=== PATIENT | male | born 1995 ===

== ENCOUNTER 2022-09-12 20:36 | Emergency (ER) | payer SELFPAY ==
[2022-09-12 20:56] VITALS: PULSE 79; RESP 16; O2SAT 99; BMI 24.3
[2022-09-12 21:50] VITALS: BP 143/64; PULSE 80; RESP 16; O2SAT 100
--- NOTE | 2022-09-12 21:58 | PC.NURSE ---
Pt declines tetanus shot at this time.
[2022-09-12] MEDS: LIDOCAINE 2% W/EPI INJ 20 ML INJ (22:01)
--- NOTE | 2022-09-13 01:14 | ED_ITS ---
HPI - Extremity Injury (Upper) General Chief Complaint: Extremity Injury, Upper Stated Complaint: L wrist lac Time Seen by Provider: 09/12/22 20:41 Source: patient Mode of arrival: Ambulatory History of Present Illness HPI narrative: 27-year-old male nonsmoker with noncontributory medical history presents with a chief complaint of an accidental laceration to the volar surface of his left wrist just prior to arrival. He was using a sharp knife to cut through zip ties when it slipped any suffered this laceration. There was some bleeding initially and pain but no numbness, tingling or weakness associated. He states his tetanus is likely not up-to-date and although he understands the risk of tetanus infection he would prefer not to be given the shot at this time. He denies other injury and is otherwise well and free of complaint Related Data Previous Rx's Medication Instructions Recorded cephalexin 500 mg capsule 500 mg PO Q6H 7 days #28 caps 09/13/22 Review of Systems Review of Systems Narrative: GENERAL: Denies chills, fatigue, malaise, fever, sweats. HEENT: Denies sinus pain, ear pain, sore throat, difficulty swallowing, dizziness. RESPIRATORY: Denies dyspnea, cough, wheezing, hemoptysis, sputum. CARDIOVASCULAR: Denies chest pain, palpitations, orthopnea, edema, GASTROINTESTINAL: Denies nausea, vomiting, abdominal pain, diarrhea, constipation, melena. : Denies dysuria, frequency, incontinence, hematuria, urinary retention. MUSCULOSKELETAL: denies weakness, joint pain, or bony pain SKIN: See HPI NEUROLOGIC: Denies weakness, headache, numbness, change in speech, confusion, seizures, incoordination. PSYCHIATRIC: No concerning psychosocial issues. 12 point review of systems is negative except for those stated above Patient History Social History Smoking Status: Never smoker Smoking Status: Never smoker Substance Use Type: does not use Exam Narrative Exam Narrative: GEN: AOx3 and in mild distress EYES: Pupils are equal, round, and reactive to light and accommodation. Extraoccular muscles are intact bilaterally. There is no subconjunctival hemorrhage or exudate. CHEST: Lungs are clear to auscultation bilaterally and free of wheezes, rales, or rhonchi. Heart rate is regular rhythm, there are no murmurs, clicks, rubs, or gallops. There is no chest wall tenderness. ABD: Abdomen is soft and nontender. There is no guarding or rebound. Bowel sounds are normal in all 4 quadrants. There is no mass or organomegaly. EXT: Full painless ROM of all extremities with no loss of sensation or strength. SKIN: 4 cm laceration on volar surface of left wrist, at base of thumb starting in the thenar eminence and extending proximally over the carpals. It is viewed in a bloodless field and there is no evidence of foreign body or tendon invol vement, there is a very small laceration through the thenar eminence. Minimal bleeding. Initial Vital Signs Initial Vital Signs: Vital Signs Pulse Rate 79 09/12/22 20:56 Respiratory Rate 16 09/12/22 20:56 Pulse Oximetry 99 09/12/22 20:56 Oxygen Delivery Method 09/12/22 20:56 Procedures Laceration Repair Laceration 1: Site: hand Side (If applicable): left Size (cm): 4 Description: linear Depth: involves muscle layer Local Anesthetic: lidocaine 2% and with epi Amount of anesthesia used (mL): 4 Pre-repair: wound explored and cleansed with chlorhexadine Skin layer closed with: nylon Skin layer suture size: 4-0 Number of sutures: 9 Technique: simple, interrupted Subcutaneous layer closed with: vicryl Subcutaneous layer suture size: 4-0 Number of sutures: 1 Technique: simple, interrupted Course Orders Ordered: Discontinued Medications Lidocaine/Epinephrine (Lidocaine 2% W/Epi Inj) 20 ml INJ INTRA-OP ONE Stop: 09/12/22 22:01 Last Admin: 09/12/22 22:01 Dose: 20 ml Documented By: SB Vital Signs Vital signs: Vital Signs - 8 hr 09/13/22 01:16 Pulse Rate 68 Respiratory Rate 18 Blood Pressure 114/59 L Pulse Oximetry 99 Oxygen Delivery Method Room Air Discharge Plan Departure Patient Disposition: Home Clinical Impression: Laceration of wrist Instructions: DI for Laceration Repair Activity Restrictions/Additional Instructions: Please keep the wound clean and dry to the best of your ability. Please monitor for signs of infection such as redness to the skin or increasing pain. Have the sutures/anderson removed by your doctor in about 7 days. If you are unable to get into your doctor, we would be happy to remove the sutures/adnerson in that same timeframe. Prescriptions: New cephalexin 500 mg capsule 500 mg PO Q6H 7 Days Qty: 28 0RF Referrals: Miscellaneous,Doctor, MD [Primary Care Provider] - Visit Report Forms: Patient Portal/API
[2022-09-13 01:16] VITALS: BP 114/59; PULSE 68; RESP 18; O2SAT 99
== END 2022-09-13 01:18 | disposition home or self-care (01) ==
PROVIDERS: Emergency Provider Emergency Medicine
DX: S61.512A Laceration without foreign body of left wrist, initial encounter (principal); W26.0XXA Contact with knife, initial encounter
CPT/HCPCS: 13132; 99283